=== PATIENT | male | born 1960 | race American Indian/Alaskan Native ===

== ENCOUNTER 2017-02-18 09:04 | Emergency (ER) | payer MEDICAID, OTHER ==
[2017-02-18 09:28] VITALS: BP 149/89
[2017-02-18] MEDS ORDERED: Ketorolac 30 MG/ML SDV IM ONE (09:32)
[2017-02-18] MEDS ORDERED: Cyclobenzaprine 10 MG Tab PO ONE (09:32)
--- NOTE | 2017-02-18 09:43 | EDM.PDOC ---
ED HPI GENERAL MEDICAL PROBLEM - General Chief Complaint: Back Pain or Injury Stated Complaint: [id number] SOMETHING WRONG WITH SPINE AND HIP Time Seen by Provider: 02/18/17 09:30 Source of Information: Reports: Patient History Limitations: Reports: No Limitations - History of Present Illness INITIAL COMMENTS - FREE TEXT/NARRATIVE: Patient comes emergency room today with complaints of right lower back pain. Approximately one week ago he twisted doing something in his house and developed right lower back pain that minimally radiates down his right buttocks and into his anterior thigh and groin. He denies any numbness or tingling to his lower extremity. He denies any change in the functionality of his lower extremity. He denies any change or loss of bowel or bladder control. He denies any recent traumatic injury to his lower back. He has had multiple back surgeries in the past. He was on a long-term narcotic pain contract for his chronic back pain although he has not been on that for the past 3 years and his back is been quite well he reports. Right Back Pain Score (Numeric/FACES): 7 - Related Data Allergies Allergy/AdvReac Type Severity Reaction Status Date / Time No Known Allergies Allergy Verified 02/18/17 09:28 Home Meds: Home Meds Gabapentin [Neurontin] 600 mg PO TID 02/18/17 [History] Ledipasvir/Sofosbuvir [Harvoni 90-400 mg Tablet] 1 tab PO ASDIRECTED 02/18/17 [ History] Lisinopril 10 mg PO DAILY 02/18/17 [History] Pantoprazole [ProTONIX] 40 mg PO DAILY 02/18/17 [History] Past Medical History Gastrointestinal History: Reports: GERD, PUD Musculoskeletal History: Reports: Back Pain, Chronic Neurological History: Reports: Neuropathy, Peripheral - Past Surgical History GI Surgical History: Reports: Hernia, Abdominal Musculoskeletal Surgical History: Reports: Other (See Below) Other Musculoskeletal Surgeries/Procedures:: three back surgeries Social & Family History - Tobacco Use Smoking Status *Q: Current Every Day Smoker Years of Tobacco use: 40 Packs/Tins Daily: 0.5 Second Hand Smoke Exposure: Yes - Alcohol Use Days Per Week of Alcohol Use: 0 - Recreational Drug Use Recreational Drug Use: No ED ROS GENERAL - Review of Systems Review Of Systems: ROS reveals no pertinent complaints other than HPI. ED EXAM,LOWER BACK PAIN/INJURY - Physical Exam Exam: See Below Exam Limited By: No Limitations General Appearance: Alert, WD/WN, No Apparent Distress Throat/Mouth: Normal Inspection, Normal Lips Head: Atraumatic, Normocephalic Neck: Normal Inspection, Supple, Non-Tender, Full Range of Motion Respiratory/Chest: No Respiratory Distress, Lungs Clear, Normal Breath Sounds, No Accessory Muscle Use, Chest Non-Tender Cardiovascular: Normal Peripheral Pulses, Regular Rate, Rhythm, No Edema GI/Abdominal: Normal Bowel Sounds, Soft, Non-Tender (Male) Exam: Deferred Rectal (Males) Exam: Deferred Back Exam: Normal Inspection, Decreased Range of Motion, Muscle Spasm, Paraspinal Tenderness (Right lower region in the L1-L2 area.), Other (Positive straight leg raise of the right lower extremity.). No: CVA Tenderness (L), CVA Tenderness (R), Vertebral Tenderness Extremities: Normal Inspection, Normal Range of Motion, Non-Tender, No Pedal Edema, Normal Capillary Refill. No: Micha's Sign, Leg Pain Neurological: Alert, Normal Mood/Affect, Normal Dorsiflexion, CN II-XII Intact, Normal Plantar Flexion, Normal Gait, Normal Reflexes, No Motor/Sensory Deficits , Oriented x 3 DTR - Lower Extremities: 2+: Knee (R), Knee (L), Ankle (R), Ankle (L) Psychiatric: Normal Affect Skin Exam: Warm, Dry, Intact, Normal Color, No Rash Lymphatic: No Adenopathy Course - Vital Signs Last Recorded V/S: Last Vital Signs Temp 37.1 C 02/18/17 09:22 Pulse 76 02/18/17 09:22 Resp 18 02/18/17 09:22 BP 149/89 H 02/18/17 09:22 Pulse Ox 100 02/18/17 09:22 - Orders/Labs/Meds Meds: Medications Discontinued Medications Generic Name Dose Route Start Last Admin Trade Name Diegoq PRN Reason Stop Dose Admin Cyclobenzaprine HCl 10 mg 02/18/17 09:32 Flexeril PO 02/18/17 09:33 ONETIME ONE Ketorolac Tromethamine 30 mg 02/18/17 09:32 Toradol IM 02/18/17 09:33 ONETIME ONE - Re-Assessments/Exams Free Text/Narrative Re-Assessment/Exam: 06/24/17 09:48 I did review his [place] PDMP which does not show any controlled substances recently. Ketorolac 30 mg IM. Flexeril 10 mg by mouth. As he does not have burning searing pain that is constant and do not feel that steroids are indicated at this time. We'll treat him conservatively. Departure - Departure Time of Disposition: 09:38 Disposition: Home, Self-Care 01 Clinical Impression: Back pain Qualifiers: Back pain location: low back pain Chronicity: acute Back pain laterality: right Sciatica presence: without sciatica Qualified Code(s): M54.5 - Low back pain - Discharge Information Instructions: Back Pain, Adult, [id number] Forms: ED Department Discharge Additional Instructions: Tylenol and or ibuprofen as needed for pain. Continue your previous medications. Flexeril 1 tab three times a day as needed for back pain spasm. RX given to patient. If pain not controlled with above, [place] 1 tab every 6 hrs with food as needed for pain. Caution sedation. RX with patient. Do not bed ridden yourself as may make spasms worse, take it easy do not do too much. DO the exercises that you have used in the past for your back problems. Return to the ED if new or worsening symptoms. Follow up with regular provider in the next 4-6 days if not improving sooner if worse. - Assessment/Plan Assessment:: Right lower acute back pain Hx of mutiple back surgeries and previous chronic back pain. Plan: Tylenol and or ibuprofen as needed for pain. Continue your previous medications. Flexeril 1 tab three times a day as needed for back pain spasm. RX given to patient. If pain not controlled with above, [place] 1 tab every 6 hrs with food as needed for pain. Caution sedation. RX with patient. Do not bed ridden yourself as may make spasms worse, take it easy do not do too much. DO the exercises that you have used in the past for your back problems. Return to the ED if new or worsening symptoms. Follow up with regular provider in the next 4-6 days if not improving sooner if worse.
== END 2017-02-18 09:56 | disposition home or self-care (01) ==
LOC: DL.ED 09:04
DX: M54.5 Low back pain (principal); K21.9 Gastro-esophageal reflux disease without esophagitis; F17.210 Nicotine dependence, cigarettes, uncomplicated; Z79.899 Other long term (current) drug therapy
CPT/HCPCS: 96372; 99283; A9270; J1885

== ENCOUNTER 2017-06-18 20:14 | Emergency (ER) | payer MEDICAID, OTHER ==
[2017-06-18 20:45] VITALS: BP 144/93
[2017-06-18] MEDS ORDERED: Ibuprofen 600 MG Tab PO ONE (21:55)
--- NOTE | 2017-06-18 22:00 | EDM.PDOC ---
ED HPI GENERAL MEDICAL PROBLEM - General Chief Complaint: Upper Extremity Injury/Pain Stated Complaint: SLIPPED IN SHOWER, SWOLLEN HAND [id number] Time Seen by Provider: 06/18/17 21:55 Source of Information: Reports: Patient History Limitations: Reports: No Limitations - History of Present Illness INITIAL COMMENTS - FREE TEXT/NARRATIVE: injured right hand on . swelling decreased but still in pain. Treatments EXECUTOR OF ESTATE: Reports: Other (see below) Other Treatments EXECUTOR OF ESTATE: scheduled meds Right Hand Pain Score (Numeric/FACES): 8 - Related Data Allergies Allergy/AdvReac Type Severity Reaction Status Date / Time No Known Allergies Allergy Verified 06/18/17 20:45 Home Meds: Home Meds Gabapentin [Neurontin] 600 mg PO TID 02/18/17 [History] Lisinopril 10 mg PO DAILY 02/18/17 [History] Pantoprazole [ProTONIX] 40 mg PO DAILY 02/18/17 [History] Amitriptyline HCl 100 mg PO BEDTIME 06/18/17 [History] Past Medical History HEENT History: Reports: None Cardiovascular History: Reports: Hypertension Respiratory History: Reports: None Gastrointestinal History: Reports: Cirrhosis, GERD, Helicobacter Pylori, PUD Musculoskeletal History: Reports: Back Pain, Chronic Neurological History: Reports: Neuropathy, Peripheral Immunologic History: Reports: Other (See Below) Other Immunologic History: Hep C Dermatologic History: Reports: None - Infectious Disease History Infectious Disease History: Reports: Hepatitis C - Past Surgical History GI Surgical History: Reports: Hernia, Abdominal Musculoskeletal Surgical History: Reports: Other (See Below) Other Musculoskeletal Surgeries/Procedures:: three back surgeries Social & Family History - Family History Family Medical History: Noncontributory - Tobacco Use Smoking Status *Q: Light Tobacco Smoker Years of Tobacco use: 41 Packs/Tins Daily: 0.1 Second Hand Smoke Exposure: Yes - Caffeine Use Caffeine Use: Reports: Coffee, Soda, Tea - Alcohol Use Days Per Week of Alcohol Use: 0 - Recreational Drug Use Recreational Drug Use: Yes Recreational Drug Type: Reports: Marijuana/Hashish Review of Systems - Review of Systems Review Of Systems: ROS reveals no pertinent complaints other than HPI. ED EXAM, GENERAL - Physical Exam Exam: See Below Exam Limited By: No Limitations General Appearance: Alert, WD/WN, Mild Distress, Other (hand pain) Ears: Hearing Grossly Normal Throat/Mouth: Normal Voice, No Airway Compromise Head: Atraumatic Neck: Non-Tender, Full Range of Motion Respiratory/Chest: No Respiratory Distress Cardiovascular: Regular Rate, Rhythm GI/Abdominal: Soft, Non-Tender Extremities: Other (right hand mild swolling lateral 5th, NV wnl ) Neurological: Alert, Oriented, Normal Cognition, Normal Gait, No Motor/Sensory Deficits Psychiatric: Normal Affect, Normal Mood Skin Exam: Warm, Dry, Normal Color Lymphatic: No Adenopathy ED TRAUMA EXTREMITY PROCEDURES - Splinting Right Upper Extremity Pre-Procedure NV Status: Normal Post-Procedure NV Status: Normal Splint Material: Metal Splint Design: Gutter Applied & Form Fitted By: Nurse Provider Post-Splint Application NV Check: NV Status Normal, Good Position Complications: No Course - Vital Signs Last Recorded V/S: Last Vital Signs Temp 37.0 C 06/18/17 20:30 Pulse 92 06/18/17 20:30 Resp 18 06/18/17 20:30 BP 144/93 H 06/18/17 20:30 Pulse Ox 100 06/18/17 20:30 - Orders/Labs/Meds Meds: Medications Discontinued Medications Generic Name Dose Route Start Last Admin Trade Name Freq PRN Reason Stop Dose Admin Ibuprofen 600 mg 06/18/17 21:55 06/18/17 22:01 Motrin PO 06/18/17 21:56 600 mg ONETIME ONE Administration Departure - Departure Time of Disposition: 21:58 Disposition: Home, Self-Care 01 Condition: Good Clinical Impression: Boxer's fracture Qualifiers: Encounter type: initial encounter Fracture type: closed Qualified Code(s): S62.339A - Displaced fracture of neck of unspecified metacarpal bone, initial encounter for closed fracture - Discharge Information Instructions: Boxer's Fracture Referrals: PCP,None [Primary Care Provider] - Forms: ED Department Discharge Additional Instructions: 1) wear splint until re-evaluated by orthopedist. 2) see clinic tomorrow for ORTHOPEDIC REFERRAL for hand fracture. rx given; motrin 600mg tid prn x 12
== END 2017-06-18 22:04 | disposition home or self-care (01) ==
LOC: DL.ED 20:14
DX: S62.336A Displaced fracture of neck of fifth metacarpal bone, right hand, initial encounter for closed fracture (principal); I10 Essential (primary) hypertension; F17.210 Nicotine dependence, cigarettes, uncomplicated; W18.49XA Other slipping, tripping and stumbling without falling, initial encounter; Z79.899 Other long term (current) drug therapy
CPT/HCPCS: 29125; 73130; 99283; A9270

== ENCOUNTER 2018-02-12 18:01 | Emergency (ER) | payer MEDICARE, MEDICAID ==
[2018-02-12 18:32] VITALS: BP 159/84
[2018-02-12] MEDS ORDERED: Ketorolac 30 MG/ML SDV IVPUSH ONE (18:59)
--- NOTE | 2018-02-12 20:06 | EDM.PDOC ---
ED HPI GENERAL MEDICAL PROBLEM - General Chief Complaint: Abdominal Pain Stated Complaint: [id number] UPPER AB PAIN Time Seen by Provider: 02/12/18 18:50 Source of Information: Reports: Patient History Limitations: Reports: No Limitations - History of Present Illness INITIAL COMMENTS - FREE TEXT/NARRATIVE: right lower lrib pain since thrusday, unsure if from bumping into wall, States lightly bumped wall going to Bathroom. Pain worse with movement. Usually gone at rest, no difficulty breathing. no fever or chills, Some decrease in appetite.. No nausea or vomiting. Treatments MANAGER FURNITURE: Reports: Acetaminophen Right Upper Abdomen Pain Score (Numeric/FACES): 7 - Related Data Allergies Allergy/AdvReac Type Severity Reaction Status Date / Time No Known Allergies Allergy Verified 02/12/18 18:43 Home Meds: Home Meds Gabapentin [Neurontin] 1,200 mg PO TID 02/18/17 [History] Pantoprazole [ProTONIX] 40 mg PO DAILY 02/18/17 [History] Amitriptyline HCl 100 mg PO BEDTIME 06/18/17 [History] Aspirin [Ecotrin] 81 mg PO DAILY 10/24/17 [History] Isosorbide Mononitrate [Imdur] 30 mg PO DAILY 10/24/17 [History] Metoprolol Tartrate 25 mg PO BID 10/24/17 [History] Past Medical History HEENT History: Reports: None Cardiovascular History: Reports: Hypertension Respiratory History: Reports: None Gastrointestinal History: Reports: Cirrhosis, GERD, Helicobacter Pylori, PUD Musculoskeletal History: Reports: Back Pain, Chronic Neurological History: Reports: Neuropathy, Peripheral Immunologic History: Reports: Other (See Below) Other Immunologic History: Hep C Dermatologic History: Reports: None - Infectious Disease History Infectious Disease History: Reports: Hepatitis C - Past Surgical History GI Surgical History: Reports: Hernia, Abdominal Musculoskeletal Surgical History: Reports: Other (See Below) Other Musculoskeletal Surgeries/Procedures:: three back surgeries Social & Family History - Family History Family Medical History: Noncontributory - Tobacco Use Smoking Status *Q: Former Smoker Used Tobacco, but Quit: No - Caffeine Use Caffeine Use: Reports: Coffee, Energy Drinks, Soda, Tea - Recreational Drug Use Recreational Drug Use: No ED ROS GENERAL - Review of Systems Review Of Systems: See Below Constitutional: Reports: Decreased Appetite. Denies: Fever, Chills, Malaise, Weakness, Night Sweats, Diaphoresis HEENT: Reports: No Symptoms Respiratory: Denies: Shortness of Breath, Wheezing, Cough Cardiovascular: Reports: No Symptoms GI/Abdominal: Reports: No Symptoms : Reports: No Symptoms Musculoskeletal: Reports: Other (right mid lateral rib pain with movment) Skin: Reports: No Symptoms Neurological: Reports: No Symptoms Psychiatric: Reports: No Symptoms ED EXAM, GI/ABD - Physical Exam Exam: See Below Exam Limited By: No Limitations General Appearance: Alert, Mild Distress (with movment) Eyes: Bilateral: EOMI Ears: Normal External Exam Nose: Normal Inspection Throat/Mouth: Normal Inspection Head: Atraumatic, Normocephalic Neck: Normal Inspection Respiratory/Chest: No Respiratory Distress, Lungs Clear, Normal Breath Sounds. No: Chest Non-Tender (mild tenderness lower anterior and anteriorlateral ribs with palpation. ) Cardiovascular: Normal Peripheral Pulses, Regular Rate, Rhythm GI/Abdominal Exam: Normal Bowel Sounds, Soft, Non-Tender, No Distention, No Mass. No: Guarding, Rigid, Rebound, Tender Neurological: Alert, Oriented, Normal Cognition Skin Exam: Warm, Dry, Intact, Normal Color. No: Ecchymosis Course - Vital Signs Last Recorded V/S: Last Vital Signs Temp 99.0 F 02/12/18 18:31 Pulse 72 02/12/18 18:31 Resp 18 02/12/18 18:31 BP 159/84 H 02/12/18 18:31 Pulse Ox 98 02/12/18 18:31 - Orders/Labs/Meds Meds: Medications Discontinued Medications Generic Name Dose Route Start Last Admin Trade Name Gloria PRN Reason Stop Dose Admin Ketorolac Tromethamine 30 mg 02/12/18 18:59 02/12/18 19:12 Toradol IVPUSH 02/12/18 19:00 30 mg ONETIME ONE Administration Departure - Departure Time of Disposition: 20:03 Disposition: Home, Self-Care 01 Condition: Good Clinical Impression: Rib pain on right side - Discharge Information Instructions: Rib Contusion Referrals: Sandy Ochoa MD [Primary Care Provider] - Additional Instructions: Deep breathing exercises splint rib area with cough or sneeze alternate tylenol 650mg and ibuprofen 600mg every 4 hours as needed for discomfort warm pack to area increase fruit and fiber in diet
== END 2018-02-12 20:11 | disposition home or self-care (01) ==
LOC: DL.ED 18:01
DX: R07.81 Pleurodynia (principal); I10 Essential (primary) hypertension; K21.9 Gastro-esophageal reflux disease without esophagitis; Z79.899 Other long term (current) drug therapy; Z79.82 Long term (current) use of aspirin; Z87.891 Personal history of nicotine dependence
CPT/HCPCS: 71101; 96374; 99283; J1885

== ENCOUNTER 2020-03-19 05:57 | Day surgery (SDC) | payer MEDICARE, MEDICAID ==
[2020-03-19] MEDS ORDERED: Midazolam 1 MG/ML 2 ML SDV IV ONE ×3 (05:58→07:23)
[2020-03-19] MEDS ORDERED: fentaNYL 100 MCG/2 ML SDV IV ONE ×3 (05:58→07:22)
[2020-03-19] MEDS ORDERED: Sodium Chloride 0.9% 10 ML Syringe FLUSH PRN (06:00)
[2020-03-19] MEDS ORDERED: Dextrose 5%-0.45% NaCl 1,000 ML IV SCH (06:00)
[2020-03-19] MEDS ORDERED: Midazolam 1 MG/ML 2 ML SDV ONE (06:15)
[2020-03-19] MEDS ORDERED: fentaNYL 100 MCG/2 ML SDV ONE (06:15)
[2020-03-19 10:31] VITALS: BP 124/76; PULSE 55
--- NOTE | 2020-03-19 11:19 | OR ---
DATE: 03/19/2020 PROCEDURE: Esophagogastroduodenoscopy, NBI, and multiple pinch biopsies. INSTRUMENT USED: [id number]-HQ190 Olympus video panendoscope. PREMEDICATIONS: No oral or topical anesthesia used. Fentanyl 100 mcg intravenous, Versed 2 mg intravenous. Nasal O2 cannula. The procedure was done under pulse oximetry, BP recording, and awake overnight monitor. INDICATION: The patient with known liver cirrhosis and previous variceal banding, on long-term PPI. Esophagogastroduodenoscopy is performed for detection of any active erosive lesions, determination of the variceal status, H. pylori status to be determined, endoscopic hemostasis therapy if needed. DESCRIPTION OF PROCEDURE: The scope was passed with ease. Adequate visualization of the esophagus was made from [id number] areas. No upper esophageal lesions identified. No distal esophageal stricture. No esophageal polyp or tumor mass identified. There was no evidence of erosive esophagitis by Bullitt criteria. Uphill esophageal varices were noted without bleeding from them, NBI views were obtained, photographs were taken. No proximal gastric varices noted. Gastric fundus examination by retroflexion showed no malignant lesions. Gastric mucosal pattern noted, was consistent with portal hypertensive gastropathy. No gastric ulcer, malignant mass, or vascular ectasia identified. Duodenal bulb showed no ulcer. Visualized second part of the duodenum was unremarkable. Multiple pinch biopsies were taken from the gastric antrum and proximal body and sent for PyloriTek test for H. pylori, and if negative in an hour, the tissue is to be sent for histopathology. No bleeding was noted from any of the visualized areas at the completion of examination. Photographs were taken of the duodenal bulb, gastric antrum, fundus, and distal esophagus. IMPRESSION: 1. Portal hypertensive gastropathy. 2. Uphill esophageal varices. The patient tolerated the procedure well. [facility] /[id number]
== END 2020-03-19 09:30 | disposition home or self-care (01) ==
LOC: DL.ENDO 05:57
PROVIDERS: ATTEND Internal Medicine Gastroenterology
DX: K29.50 Unspecified chronic gastritis without bleeding (principal); K74.60 Unspecified cirrhosis of liver; K76.6 Portal hypertension; K31.89 Other diseases of stomach and duodenum; I85.10 Secondary esophageal varices without bleeding; B18.2 Chronic viral hepatitis C; E66.09 Other obesity due to excess calories; M54.5 Low back pain; F32.9 Major depressive disorder, single episode, unspecified; F17.210 Nicotine dependence, cigarettes, uncomplicated; K43.9 Ventral hernia without obstruction or gangrene; E78.5 Hyperlipidemia, unspecified; I12.9 Hypertensive chronic kidney disease with stage 1 through stage 4 chronic kidney disease, or unspecified chronic kidney disease; N18.9 Chronic kidney disease, unspecified; Z87.11 Personal history of peptic ulcer disease; Z86.010 Personal history of colon polyps; Z86.19 Personal history of other infectious and parasitic diseases; Z98.890 Other specified postprocedural states; Z87.19 Personal history of other diseases of the digestive system; Z68.28 Body mass index [BMI] 28.0-28.9, adult
CPT/HCPCS: 43239; 87077; 88305; 88342; J2250; J3010; J7042

== ENCOUNTER 2024-02-08 17:38 | Emergency (ER) | payer MEDICARE, BC ==
[2024-02-08 18:04] VITALS: BP 151/96; PULSE 74
[2024-02-08 18:24] LABS: BASOPHILS PERCENT AUTO 1.6 % (0.0-1.0); EOSINOPHILS PERCENT AUTO 17.7 % (1.0-3.0); HEMATOCRIT 27.2 % (40.0-54.0); HEMOGLOBIN 8.1 g/dL (14.0-18.0); MEAN CORPUSCULAR HEMOGLOBIN 24.5 pg (27.0-34.0); MEAN CORPUSCULAR HGB CONC 29.8 g/dL (33.0-35.0); MEAN CORPUSCULAR VOLUME 82.2 fL (80-100); MONOCYTES PERCENT AUTO 12.1 % (2-8); NEUTROPHILS PERCENT AUTO 43.6 % (42.2-75.2); PLATELET COUNT,PLT 111 10^3/uL (150-450); RED BLOOD CELL COUNT 3.31 10^6/uL (4.6-6.2); WHITE BLOOD CELL COUNT,WBC 2.5 10^3/uL (5.0-10.0)
[2024-02-08 18:37] LABS: ALBUMIN 2.2 g/dL (3.4-5.0); ANION GAP 9.4 mEq/L (7-13); BILIRUBIN TOTAL 0.8 mg/dL (0.2-1.0); BUN/CREATININE RATIO 13.4 (No establ ref range); CALCIUM 8.1 mg/dL (8.5-10.1); CREATININE 1.34 mg/dL (0.70-1.30); EST CRCL DRUG DOSING (CG) 64.75 mL/min; POTASSIUM,K 4.4 mmol/L (3.5-5.1); PROTEIN TOTAL,TP 6.9 g/dL (6.4-8.2)
[2024-02-08 18:38] LABS: A/G RATIO 0.47
[2024-02-08] MEDS: Acetaminophen/HYDROcodone 325-10 MG Tab PO ONE (19:09)
[2024-02-08 19:55] LABS: INR 1.2 (0.9-1.2); PROTHROMBIN TIME 12.1 SEC (9.0-12.0)
== END 2024-02-08 19:15 | disposition home or self-care (01) ==
LOC: DL.ED 17:38
DX: S22.32XA Fracture of one rib, left side, initial encounter for closed fracture (principal); I12.9 Hypertensive chronic kidney disease with stage 1 through stage 4 chronic kidney disease, or unspecified chronic kidney disease; N18.9 Chronic kidney disease, unspecified; K21.9 Gastro-esophageal reflux disease without esophagitis; E66.9 Obesity, unspecified; E78.00 Pure hypercholesterolemia, unspecified; F17.200 Nicotine dependence, unspecified, uncomplicated; Z79.899 Other long term (current) drug therapy; Z90.49 Acquired absence of other specified parts of digestive tract; Z68.25 Body mass index [BMI] 25.0-25.9, adult; W00.0XXA Fall on same level due to ice and snow, initial encounter
CPT/HCPCS: 36415; 71101-LT; 80053; 85025; 85610; 99283; A9270-GY

== ENCOUNTER 2024-02-28 18:08 | Emergency (ER) | payer MEDICARE ==
[2024-02-28 18:28] LABS: BASOPHILS PERCENT AUTO 0.1 % (0.0-1.0); HEMOGLOBIN 8.9 g/dL (14.0-18.0); LYMPHOCYTES PERCENT AUTO 3.2 % (20.5-50.1); MEAN CORPUSCULAR HEMOGLOBIN 24.3 pg (27.0-34.0); MEAN CORPUSCULAR HGB CONC 29.7 g/dL (33.0-35.0); MEAN CORPUSCULAR VOLUME 81.7 fL (80-100); MONOCYTES PERCENT AUTO 10.2 % (2-8); NEUTROPHILS PERCENT AUTO 86.5 % (42.2-75.2); PLATELET COUNT,PLT 95 10^3/uL (150-450); RED BLOOD CELL COUNT 3.67 10^6/uL (4.6-6.2); WHITE BLOOD CELL COUNT,WBC 11.3 10^3/uL (5.0-10.0)
[2024-02-28] MEDS: Sodium Chloride 0.9% 10 ML Syringe FLUSH PRN (18:31)
[2024-02-28] MEDS: Ondansetron 4 MG/2 ML SDV IV ONE (18:31)
[2024-02-28] MEDS: HYDROmorphone 1 MG/ML Syringe IVPUSH ONE (18:31)
[2024-02-28 18:38] VITALS: BP 136/79; PULSE 77
[2024-02-28 18:55] LABS: ALBUMIN 2.3 g/dL (3.4-5.0); ANION GAP 14.3 mEq/L (7-13); BILIRUBIN TOTAL 1.7 mg/dL (0.2-1.0); BUN/CREATININE RATIO 19.5 (No establ ref range); CALCIUM 8.2 mg/dL (8.5-10.1); CREATININE 1.49 mg/dL (0.70-1.30); EST CRCL DRUG DOSING (CG) 59.86 mL/min; POTASSIUM,K 4.3 mmol/L (3.5-5.1); PROTEIN TOTAL,TP 7.2 g/dL (6.4-8.2)
[2024-02-28 19:02] LABS: A/G RATIO 0.47
[2024-02-28] MEDS: Acetaminophen 500 MG Tab PO ONE (23:49)
== END 2024-02-29 00:55 | disposition home or self-care (01) ==
LOC: DL.ED 18:08
DX: S22.42XA Multiple fractures of ribs, left side, initial encounter for closed fracture (principal); M25.511 Pain in right shoulder; J98.11 Atelectasis; I10 Essential (primary) hypertension; K21.9 Gastro-esophageal reflux disease without esophagitis; Z79.899 Other long term (current) drug therapy; W19.XXXA Unspecified fall, initial encounter; Y92.000 Kitchen of unspecified non-institutional (private) residence as the place of occurrence of the external cause
CPT/HCPCS: 36415; 71250; 80053; 84145; 84484; 85025; 96374; 96375; 99285; A9270; J1170; J2405; J3490